=== PATIENT | male | born 1980 | race American Indian/Alaskan Native ===

== ENCOUNTER 2018-12-09 11:02 | Emergency (ER) | payer MEDICAID ==
--- NOTE | 2018-12-09 11:26 | Emergency Department Report ---
Chief Complaint: Sore Throat Stated Complaint: SORETHROAT Time Seen by Provider: 12/09/18 11:23 - HPI History of Present Illness: pt has sore throat x3 days subjective fever no medication tried pt states kids has strep throat rapid strep sent MSE screening note: Focused history and physical exam performed. Due to findings the following was ordered: rapid strep ED Disposition for MSE Condition: Stable
--- NOTE | 2018-12-09 12:03 | Emergency Department Report ---
ED ENT HPI - General Chief complaint: Sore Throat Stated complaint: SORETHROAT Time Seen by Provider: 12/09/18 11:23 Source: patient Mode of arrival: Ambulatory Limitations: No Limitations - History of Present Illness Initial comments: Pt is a 38 yo male who presents to the ED with a sore throat for three days. He has subjective fever and pain with swallowing. He denies any cough or any other sx. The patient has not tried any treatment. The patient's child has strep throat. - Related Data Previous Rx's Medication Instructions Recorded Last Taken Type Amoxicillin [Trimox CAP] 500 mg PO BID 10 Days #20 capsule 12/09/18 Unknown Rx Allergies Allergy/AdvReac Type Severity Reaction Status Date / Time No Known Allergies Allergy Unverified 12/09/18 11:06 ED Dental HPI - General Chief complaint: Sore Throat Stated complaint: SORETHROAT Time Seen by Provider: 12/09/18 11:23 Source: patient Mode of arrival: Ambulatory Limitations: No Limitations - Related Data Previous Rx's Medication Instructions Recorded Last Taken Type Amoxicillin [Trimox CAP] 500 mg PO BID 10 Days #20 capsule 12/09/18 Unknown Rx Allergies Allergy/AdvReac Type Severity Reaction Status Date / Time No Known Allergies Allergy Unverified 12/09/18 11:06 ED Review of Systems ROS: Stated complaint: SORETHROAT Other details as noted in HPI Comment: All other systems reviewed and negative ED Past Medical Hx - Past Medical History Previous Medical History?: No - Surgical History Past Surgical History?: No - Social History Smoking Status: Current Every Day Smoker Substance Use Type: Alcohol - Medications Home Medications: Home Medications Medication Instructions Recorded Confirmed Last Taken Type Amoxicillin [Trimox CAP] 500 mg PO BID 10 Days #20 capsule 12/09/18 Unknown Rx ED Physical Exam - General Limitations: No Limitations General appearance: alert, in no apparent distress - Head Head exam: Present: atraumatic, normocephalic - Eye Eye exam: Present: normal appearance - ENT ENT exam: Present: mucous membranes moist, other (mild posterior oropharynx erythema, small amount of tonsillar exudates, uvula is midline) - Respiratory Respiratory exam: Absent: respiratory distress - Cardiovascular Cardiovascular Exam: Present: regular rate - Neurological Exam Neurological exam: Present: alert, oriented X3 - Psychiatric Psychiatric exam: Present: normal affect, normal mood - Skin Skin exam: Present: warm, dry, intact ED Course Vital Signs 12/09/18 11:23 Temperature 98.1 F Pulse Rate 78 Respiratory 20 Rate Blood Pressure 139/96 O2 Sat by Pulse 98 Oximetry ED Medical Decision Making - Medical Decision Making Pt is a 38 yo male who presents to the ED with a sore throat for three days. He has subjective fever and pain with swallowing. He denies any cough or any other sx. The patient has not tried any treatment. The patient's child has strep throat. Rapid strep is positive. VSS. Will tx pt with amoxicillin. Will have pt follow up with PCP in the next 2-3 days. Return to the ED for any new or worsening symptoms. - Differential Diagnosis strep throat, URI, viral syndrome Critical care attestation.: If time is entered above; I have spent that time in minutes in the direct care of this critically ill patient, excluding procedure time. ED Disposition Clinical Impression: Strep pharyngitis Disposition: DC-01 TO HOME OR SELFCARE Is pt being admited?: No Does the pt Need Aspirin: No Condition: Stable Instructions: Strep Throat (ED) Additional Instructions: Please take all of your medication as prescribed. Use warm salt water gargles for sore throat. Drink plenty of fluids. Alternate tylenol/motrin every 4 hours as needed for a temperature of 100.4 or greater. Follow up with a primary care doctor in the next 2-3 days. Return to the emergency room for any new or worsening symptoms. Prescriptions: Amoxicillin [Trimox CAP] 500 mg PO BID 10 Days #20 capsule Time of Disposition: 12:04 Print Language: SPANISH
[2018-12-09 12:31] VITALS: BP 140/80
== END 2018-12-09 12:28 | disposition home or self-care (01) ==
LOC: ED 11:02
DX: J02.0 Streptococcal pharyngitis (principal); F17.200 Nicotine dependence, unspecified, uncomplicated
CPT/HCPCS: 87430; 99283

== ENCOUNTER 2021-12-25 03:01 | Emergency (ER) | payer SELFPAY ==
[2021-12-25] MEDS ORDERED: HALOPERIDOL LACTATE 5 MG/1 ML INJ IM PRN (04:29)
[2021-12-25] MEDS ORDERED: LORazepam 2 MG/ML VIAL IM PRN (04:29)
--- NOTE | 2021-12-25 04:32 | Emergency Department Report ---
ED General Adult HPI - General Chief complaint: Psych Stated complaint: SUICIDAL IDEATIONS, FOOT PAIN Time Seen by Provider: 12/25/21 04:13 Source: patient, EMS ( EMS documentation not available at time of chart dictation ), RN notes reviewed, old records reviewed Mode of arrival: Ambulatory Limitations: No Limitations - History of Present Illness Initial comments: The patient is a 41-year-old gentleman who presents to the ER complaining of hallucinations, suicidality and foot pain. Initially, patient brought to the hospital by EMS, smiling and cooperative. During my subsequent evaluation, patient is sleeping on his side, and asks to be left alone. He would not describe the qualitative nature of his symptoms, exacerbating factors relieving factors or aggravating factors. He is not accompanied by friends or family at this time for additional history or collateral information -: unknown - Related Data Previous Rx's Medication Instructions Recorded Last Taken Type Amoxicillin [Trimox CAP] 500 mg PO BID 10 Days #20 capsule 12/09/18 Unknown Rx HYDROcodone/ACETAMINOPHEN 15 ml PO Q6H PRN #150 solution 12/09/18 Unknown Rx [Hydrocodon-Acetamin 7.5-325/15] predniSONE [Deltasone] 20 mg PO QDAY #5 tab 12/09/18 Unknown Rx Allergies Allergy/AdvReac Type Severity Reaction Status Date / Time No Known Allergies Allergy Verified 12/25/21 19:30 ED Review of Systems ROS: Stated complaint: SUICIDAL IDEATIONS, FOOT PAIN Other details as noted in HPI Comment: per hpi Constitutional: see HPI Eyes: as per HPI ENT: as per HPI Respiratory: see HPI Cardiovascular: as per HPI Endocrine: see HPI Gastrointestinal: as per HPI Genitourinary: as per HPI Musculoskeletal: as per HPI, myalgia Psychiatric: suicidal thoughts ED Past Medical Hx - Past Medical History Previous Medical History?: Yes Hx Seizures: Yes Hx Psychiatric Treatment: Yes - Surgical History Past Surgical History?: No - Social History Smoking Status: Current Every Day Smoker Substance Use Type: Alcohol - Medications Home Medications: Home Medications Medication Instructions Recorded Confirmed Last Taken Type Amoxicillin [Trimox CAP] 500 mg PO BID 10 Days #20 capsule 12/09/18 Unknown Rx HYDROcodone/ACETAMINOPHEN 15 ml PO Q6H PRN #150 solution 12/09/18 Unknown Rx [Hydrocodon-Acetamin 7.5-325/15] predniSONE [Deltasone] 20 mg PO QDAY #5 tab 12/09/18 Unknown Rx ED Physical Exam - General Limitations: Other (Patient does not speak to this examiner) General appearance: alert, in no apparent distress, obese - Head Head exam: Present: atraumatic, normocephalic - Eye Eye exam: Present: normal appearance, PERRL, EOMI. Absent: nystagmus - ENT ENT exam: Present: normal exam, normal orophraynx, mucous membranes moist, normal external ear exam - Neck Neck exam: Present: normal inspection, full ROM. Absent: tenderness, meningismus - Respiratory Respiratory exam: Present: normal lung sounds bilaterally. Absent: respiratory distress, wheezes, rales, rhonchi, stridor, decreased breath sounds - Cardiovascular Cardiovascular Exam: Present: normal rhythm, bradycardia. Absent: tachycardia, irregular rhythm, systolic murmur, diastolic murmur, rubs, gallop - GI/Abdominal GI/Abdominal exam: Present: soft. Absent: distended, tenderness, guarding, rebound, rigid, pulsatile mass - Rectal Rectal exam: Present: deferred - Extremities Exam Extremities exam: Present: normal inspection, full ROM, other (2+ pulses noted in the bilateral upper and lower extremities. There is no palpable cord. negative Homans sign. Muscular compartments are soft. The pelvis is stable.). Absent: pedal edema, calf tenderness - Back Exam Back exam: Present: normal inspection. Absent: tenderness, CVA tenderness (R), CVA tenderness (L), paraspinal tenderness, vertebral tenderness - Neurological Exam Neurological exam: Present: alert, other (There is no facial droop. The tongue is midline. EOMI. 5 out of 5 strength in 4 extremities) - Psychiatric Psychiatric exam: Present: flat affect, suicidal ideation - Skin Skin exam: Present: warm, dry, intact, normal color. Absent: rash ED Course Vital Signs 12/25/21 12/25/21 12/25/21 03:18 09:05 10:00 Temperature 98 F 98.4 F Pulse Rate 58 L 76 Respiratory 16 16 Rate Blood Pressure 115/75 136/82 [Right] O2 Sat by Pulse 100 98 99 Oximetry 12/25/21 20:05 Temperature 98.4 F Pulse Rate 60 Respiratory 16 Rate Blood Pressure 103/68 [Right] O2 Sat by Pulse 100 Oximetry - Reevaluation(s) Reevaluation #1: 12/25/21 05:29 Differential diagnosis, including but not limited to: Malingering, secondary gain, behavioral health screening examination, medical clearance for psychiatric placement Assessment and plan: 41-year-old gentleman, who was afebrile, with reassuring vital signs, with a benign and unremarkable physical examination, presenting to the ER today with a triage articulated complaint of suicidality and hallucinations. Place patient on 1013. Psychiatric consultation requested. Appropriate laboratory studies ordered. Urinalysis ordered. COVID swab ordered. Care will be transferred to the oncoming ER physician, Dr Florina DURAN, to follow-up and the aforementioned diagnostic studies. His physical exam is benign and unremarkable, and should these laboratory studies be unremarkable, patient may be considered medically suitable for psychiatric consultation, disposition and placement. 12/26/21 00:31 ED Medical Decision Making - Lab Data Result diagrams: 12/25/21 19:18 12/25/21 06:03 Vital Signs 12/25/21 03:18 Temperature 98 F Pulse Rate 58 L Respiratory 16 Rate Blood Pressure 115/75 [Right] O2 Sat by Pulse 100 Oximetry Lab Results 12/25/21 12/25/21 12/25/21 Range/Units 06:03 06:37 06:37 WBC (4.5-11.0) K/mm3 RBC (3.65-5.03) M/mm3 Hgb (11.8-15.2) gm/dl Hct (35.5-45.6) % MCV (84-94) fl MCH (28-32) pg MCHC (32-34) % RDW (13.2-15.2) % Plt Count (140-440) K/mm3 Lymph % (Auto) (13.4-35.0) % [place] % (Auto) (0.0-7.3) % Eos % (Auto) (0.0-4.3) % Baso % (Auto) (0.0-1.8) % Lymph # (Auto) (1.2-5.4) K/mm3 [place] # (Auto) (0.0-0.8) K/mm3 Eos # (Auto) (0.0-0.4) K/mm3 Baso # (Auto) (0.0-0.1) K/mm3 Seg Neutrophils % (40.0-70.0) % Seg Neutrophils # (1.8-7.7) K/mm3 Sodium 139 (137-145) mmol/L Potassium 4.1 (3.6-5.0) mmol/L Chloride 105.5 (98-107) mmol/L Carbon Dioxide 20 L (22-30) mmol/L Anion Gap 18 mmol/L BUN 10 (9-20) mg/dL Creatinine 0.8 (0.8-1.3) mg/dL Estimated GFR > 60 ml/min BUN/Creatinine Ratio 13 % Glucose 108 H (75-100) mg/dL Calcium 9.2 (8.4-10.2) mg/dL Total Bilirubin 0.20 (0.1-1.2) mg/dL AST 22 (5-40) units/L ALT 18 (7-56) units/L Alkaline Phosphatase 92 (35-129) units/L Total Creatine Kinase (55-170) units/L Total Protein 6.3 (6.3-8.2) g/dL Albumin 3.9 (3.9-5) g/dL Albumin/Globulin Ratio 1.6 % Urine Color (Yellow) Urine Turbidity (Clear) Urine pH (5.0-7.0) Ur Specific [place] (1.003-1.030) Urine Protein (Negative) mg/dL Urine Glucose (UA) (Negative) mg/dL Urine Ketones (Negative) mg/dL Urine Blood (Negative) Urine Nitrite (Negative) Urine Bilirubin (Negative) Urine Urobilinogen (<2.0) mg/dL Ur Leukocyte Esterase (Negative) Urine WBC (Auto) (0.0-6.0) /HPF Urine RBC (Auto) (0.0-6.0) /HPF U Epithel Cells (Auto) (0-13.0) /HPF Urine Mucus /HPF Salicylates < 0.3 L (2.8-20.0) mg/dL Urine Opiates Screen Urine Methadone Screen Acetaminophen 5.0 L (10.0-30.0) ug/mL Ur Barbiturates Screen Valproic Acid < 2.8 L (50-100) ug/mL Ur Phencyclidine Scrn Ur Amphetamines Screen U Benzodiazepines Scrn Urine Cocaine Screen U Marijuana (THC) Screen Drugs of Abuse Note Plasma/Serum Alcohol (0-0.07) % SARS-CoV-2 (PCR) (Negative) 12/25/21 12/25/21 12/25/21 Range/Units 06:37 06:37 19:18 WBC 5.4 (4.5-11.0) K/mm3 RBC 5.46 H (3.65-5.03) M/mm3 Hgb 13.7 (11.8-15.2) gm/dl Hct 42.1 (35.5-45.6) % MCV 77 L (84-94) fl MCH 25 L (28-32) pg MCHC 33 (32-34) % RDW 18.0 H (13.2-15.2) % Plt Count 234 (140-440) K/mm3 Lymph % (Auto) 27.9 (13.4-35.0) % [place] % (Auto) 9.1 H (0.0-7.3) % Eos % (Auto) 7.5 H (0.0-4.3) % Baso % (Auto) 0.5 (0.0-1.8) % Lymph # (Auto) 1.5 (1.2-5.4) K/mm3 [place] # (Auto) 0.5 (0.0-0.8) K/mm3 Eos # (Auto) 0.4 (0.0-0.4) K/mm3 Baso # (Auto) 0.0 (0.0-0.1) K/mm3 Seg Neutrophils % 55.0 (40.0-70.0) % Seg Neutrophils # 3.0 (1.8-7.7) K/mm3 Sodium (137-145) mmol/L Potassium (3.6-5.0) mmol/L Chloride (98-107) mmol/L Carbon Dioxide (22-30) mmol/L Anion Gap mmol/L BUN (9-20) mg/dL Creatinine (0.8-1.3) mg/dL Estimated GFR ml/min BUN/Creatinine Ratio % Glucose (75-100) mg/dL Calcium (8.4-10.2) mg/dL Total Bilirubin (0.1-1.2) mg/dL AST (5-40) units/L ALT (7-56) units/L Alkaline Phosphatase (35-129) units/L Total Creatine Kinase 363 H (55-170) units/L Total Protein (6.3-8.2) g/dL Albumin (3.9-5) g/dL Albumin/Globulin Ratio % Urine Color (Yellow) Urine Turbidity (Clear) Urine pH (5.0-7.0) Ur Specific [place] (1.003-1.030) Urine Protein (Negative) mg/dL Urine Glucose (UA) (Negative) mg/dL Urine Ketones (Negative) mg/dL Urine Blood (Negative) Urine Nitrite (Negative) Urine Bilirubin (Negative) Urine Urobilinogen (<2.0) mg/dL Ur Leukocyte Esterase (Negative) Urine WBC (Auto) (0.0-6.0) /HPF Urine RBC (Auto) (0.0-6.0) /HPF U Epithel Cells (Auto) (0-13.0) /HPF Urine Mucus /HPF Salicylates (2.8-20.0) mg/dL Urine Opiates Screen Urine Methadone Screen Acetaminophen (10.0-30.0) ug/mL Ur Barbiturates Screen Valproic Acid (50-100) ug/mL Ur Phencyclidine Scrn Ur Amphetamines Screen U Benzodiazepines Scrn Urine Cocaine Screen U Marijuana (THC) Screen Drugs of Abuse Note Plasma/Serum Alcohol < 0.01 (0-0.07) % SARS-CoV-2 (PCR) (Negative) 12/25/21 12/25/21 12/25/21 Range/Units 20:48 20:48 Unknown WBC (4.5-11.0) K/mm3 RBC (3.65-5.03) M/mm3 Hgb (11.8-15.2) gm/dl Hct (35.5-45.6) % MCV (84-94) fl MCH (28-32) pg MCHC (32-34) % RDW (13.2-15.2) % Plt Count (140-440) K/mm3 Lymph % (Auto) (13.4-35.0) % [place] % (Auto) (0.0-7.3) % Eos % (Auto) (0.0-4.3) % Baso % (Auto) (0.0-1.8) % Lymph # (Auto) (1.2-5.4) K/mm3 [place] # (Auto) (0.0-0.8) K/mm3 Eos # (Auto) (0.0-0.4) K/mm3 Baso # (Auto) (0.0-0.1) K/mm3 Seg Neutrophils % (40.0-70.0) % Seg Neutrophils # (1.8-7.7) K/mm3 Sodium (137-145) mmol/L Potassium (3.6-5.0) mmol/L Chloride (98-107) mmol/L Carbon Dioxide (22-30) mmol/L Anion Gap mmol/L BUN (9-20) mg/dL Creatinine (0.8-1.3) mg/dL Estimated GFR ml/min BUN/Creatinine Ratio % Glucose (75-100) mg/dL Calcium (8.4-10.2) mg/dL Total Bilirubin (0.1-1.2) mg/dL AST (5-40) units/L ALT (7-56) units/L Alkaline Phosphatase (35-129) units/L Total Creatine Kinase (55-170) units/L Total Protein (6.3-8.2) g/dL Albumin (3.9-5) g/dL Albumin/Globulin Ratio % Urine Color Yellow (Yellow) Urine Turbidity Clear (Clear) Urine pH 6.0 (5.0-7.0) Ur Specific [place] 1.025 (1.003-1.030) Urine Protein <15 mg/dl (Negative) mg/dL Urine Glucose (UA) Neg (Negative) mg/dL Urine Ketones Neg (Negative) mg/dL Urine Blood Neg (Negative) Urine Nitrite Neg (Negative) Urine Bilirubin Neg (Negative) Urine Urobilinogen 4.0 (<2.0) mg/dL Ur Leukocyte Esterase Tr (Negative) Urine WBC (Auto) 6.0 (0.0-6.0) /HPF Urine RBC (Auto) 3.0 (0.0-6.0) /HPF U Epithel Cells (Auto) 3.0 (0-13.0) /HPF Urine Mucus Few /HPF Salicylates (2.8-20.0) mg/dL Urine Opiates Screen Negative Urine Methadone Screen Negative Acetaminophen (10.0-30.0) ug/mL Ur Barbiturates Screen Negative Valproic Acid (50-100) ug/mL Ur Phencyclidine Scrn Negative Ur Amphetamines Screen Negative U Benzodiazepines Scrn Negative Urine Cocaine Screen Positive U Marijuana (THC) Screen Positive Drugs of Abuse Note Disclamer Plasma/Serum Alcohol (0-0.07) % SARS-CoV-2 (PCR) Negative (Negative) Critical care attestation.: If time is entered above; I have spent that time in minutes in the direct care of this critically ill patient, excluding procedure time. ED Disposition Clinical Impression: Medical clearance for psychiatric admission Disposition: [address] [place] [address] Is pt being admited?: No Does the pt Need Aspirin: No Condition: Good Referrals: PRIMARY CARE, [Primary Care Provider] - 3-5 Days
[2021-12-25 06:47] LABS: Alanine Aminotransferase 18 units/L (7-56); Albumin 3.9 g/dL (3.9-5); BUN/Creatinine Ratio 13; Blood Urea Nitrogen 10 mg/dL (9-20); Calcium 9.2 mg/dL (8.4-10.2); Hemolysis Index 58
--- NOTE | 2021-12-25 15:16 | Consultation ---
History of Present Illness - Reason for Consult Consult date: 12/25/21 Reason for consult: SI - History of Present Psychiatric Illness ED Note: The patient is a 41-year-old gentleman who presents to the ER complaining of hallucinations, suicidality and foot pain. Initially, patient brought to the hospital by EMS, smiling and cooperative. During my subsequent evaluation, patient is sleeping on his side, and asks to be left alone. He would not describe the qualitative nature of his symptoms, exacerbating factors relieving factors or aggravating factors. The patient is a 41 year old male with history of bipolar. The patient was seen today. He states he has been hearing voices x 2 days. The patient endorses depression and suicidal ideation with a plan to "jump in front of the train." PSYCHIATRIC HISTORY: Diagnoses: Bipolar Suicide attempts or Self-harm behavior: Yes Prior psychiatric hospitalizations: Yes Substance Abuse history:Cocaine Previous psychiatric medications tried: unable to recall Outpatient treatment: Unknown PAST MEDICAL HISTORY: None reported or document Family Psychiatric History: None reported or documented SOCIAL HISTORY Marital Status: Single Living Arrangements: Homeless Employment Status: Unemployed Access to guns/weapons: Denies Education: 3rd grade History of Abuse: Denies Legal History: unknown REVIEW OF SYSTEMS Constitutional: Negative for weight loss ENT: Negative for stridor Respiratory: Negative for cough or hemoptysis All other systems reviewed and are negative MENTAL STATUS EXAMINATION General Appearance and Behavior: Age appropriate, good hygiene, wearing appropriate clothes. calm, cooperative Cooperation: Cooperative Psychomotor Behavior: Psychomotor normal Mood: "depressed" Affect and affective range: Congruent with stated mood Thought Process: goal directed Thought Content: suicidal Speech: normal tone and pace Suicidal Ideation: Yes Homicidal Ideation:Denies Hallucinations: Auditory Delusions: None elicited Impulse Control: limited Insight and Judgment: Limited Memory: Limited Attention: attentive Orientation: a/o x 2 Assessment (1) Bipolar Current Visit: Yes Status: Acute Treatment Plan 1013 Start Zyprexa 5mg po BID Risks, benefits and alternatives of medications discussed with the patient, questions answered and consent obtained from patient. PSYCHOTHERAPY: Supportive psychotherapy provided MEDICAL: Per primary team DELIRIUM PRECAUTIONS: Please re-orient patient frequently, keep lights on during the day, and minimize benzodiazepines and opiates as these medications could worsen patient's confusion. LINUX PROGRAMMER: Defer to primary DISPOSITION: recommend acute inpatient psychiatric hospitalization at this time. FOLLOW-UP: Will follow. Thanks Case staffed with Dr. Bravo Medications and Allergies Allergies Allergy/AdvReac Type Severity Reaction Status Date / Time No Known Allergies Allergy Unverified 12/09/18 11:06 Home Medications Medication Instructions Recorded Confirmed Last Taken Type Amoxicillin [Trimox CAP] 500 mg PO BID 10 Days #20 capsule 12/09/18 Unknown Rx HYDROcodone/ACETAMINOPHEN 15 ml PO Q6H PRN #150 solution 12/09/18 Unknown Rx [Hydrocodon-Acetamin 7.5-325/15] predniSONE [Deltasone] 20 mg PO QDAY #5 tab 12/09/18 Unknown Rx Active Meds: Active Medications Haloperidol Lactate (Haloperidol Lactate 5 Mg/1 Ml Inj) 5 mg IM Q6HR PRN PRN Reason: Agitation Lorazepam (Lorazepam 2 Mg/Ml Vial) 2 mg IM Q4HR PRN PRN Reason: Agitation Mental Status Exam - Vital signs Last Vital Signs Temp 98.4 F 12/25/21 09:05 Pulse 76 12/25/21 09:05 Resp 16 12/25/21 09:05 BP 136/82 12/25/21 09:05 Pulse Ox 99 12/25/21 10:00 Results Result Diagrams: 12/25/21 06:03 Abnormal lab results 12/25/21 12/25/21 12/25/21 Range/Units 06:03 06:37 06:37 Carbon Dioxide 20 L (22-30) mmol/L Glucose 108 H (75-100) mg/dL Total Creatine Kinase (55-170) units/L Salicylates < 0.3 L (2.8-20.0) mg/dL Acetaminophen 5.0 L (10.0-30.0) ug/mL Valproic Acid < 2.8 L (50-100) ug/mL 12/25/21 Range/Units 06:37 Carbon Dioxide (22-30) mmol/L Glucose (75-100) mg/dL Total Creatine Kinase 363 H (55-170) units/L Salicylates (2.8-20.0) mg/dL Acetaminophen (10.0-30.0) ug/mL Valproic Acid (50-100) ug/mL All other labs normal.
--- NOTE | 2021-12-25 15:51 | Emergency Department Report ---
Blank Doc - Documentation Documentation: Pt orignially signed out to Dr Jcakson. pt on 1012 cbc not preformed as ordered, requested blood draw resulted chemistries are unremarkable. urine collection still pending
[2021-12-25] MEDS ORDERED: diphenhydrAMINE 50 MG/ML VIAL IM ONE (16:14)
[2021-12-25] MEDS ORDERED: ZIPRASIDONE MESYLATE 20 MG VIAL IM ONE (16:14)
[2021-12-25 19:22] LABS: Basophils % (Auto) 0.5 % (0.0-1.8); Eosinophils # (Auto) 0.4 K/mm3 (0.0-0.4); Eosinophils % (Auto) 7.5 % (0.0-4.3); Hematocrit 42.1 % (35.5-45.6); Hemoglobin 13.7 gm/dl (11.8-15.2); Lymphocytes # (Auto) 1.5 K/mm3 (1.2-5.4); Lymphocytes % (Auto) 27.9 % (13.4-35.0); Mean Corpuscular HGB Conc 33 % (32-34); Mean Corpuscular Volume 77 fl (84-94); Monocytes # (Auto) 0.5 K/mm3 (0.0-0.8); Monocytes % (Auto) 9.1 % (0.0-7.3); Platelet Count 234 K/mm3 (140-440); Red Blood Count 5.46 M/mm3 (3.65-5.03)
[2021-12-25 21:19] LABS: Bilirubin,Urine NEG (Negative); Blood,Urine NEG (Negative); Color,Urine Yellow (Yellow); Mucus,Urine FEW /HPF; Protein,Urine <15 mg/dL mg/dL (Negative)
[2021-12-25 21:25] LABS: Amphetamine Screen,Urine Negative; Benzodiazepines Screen,Urine Negative; Methadone Screen,Urine Negative; Opiate Screen,Urine Negative
[2021-12-25 21:42] LABS: Cannabinoid Screen,Urine Positive; Cocaine Screen,Urine Positive
[2021-12-26 08:36] VITALS: BP 108/60
--- NOTE | 2021-12-26 10:30 | Progress Note ---
Subjective - Reason for Consult Consult date: 12/26/21 Reason for consult: suicidal ideation - Chief Complaint Chief complaint: The patient was seen today. he states he is doing well. He states " I made up things yesterday, someone told me to say things." The patient denies any current suicidal/homicidal ideation and denies hallucinations. REVIEW OF SYSTEMS Constitutional: Negative for weight loss ENT: Negative for stridor Respiratory: Negative for cough or hemoptysis All other systems reviewed and are negative MENTAL STATUS EXAMINATION General Appearance and Behavior: Age appropriate, good hygiene, wearing appropriate clothes. calm, cooperative Cooperation: Cooperative Psychomotor Behavior: Psychomotor normal Mood: ok Affect and affective range: Congruent with stated mood Thought Process: Goal directed Thought Content: Reality oriented Speech: normal tone and pace Suicidal Ideation: Denies Homicidal Ideation:Denies Hallucinations: Denies Delusions: None elicited Impulse Control: limited Insight and Judgment: Limited Memory: Limited Attention: attentive Orientation: a/o x 2 Assessment (1) Bipolar Current Visit: Yes Status: Acute Treatment Plan [id number] Continue Zyprexa 5mg po BID Risks, benefits and alternatives of medications discussed with the patient, questions answered and consent obtained from patient. PSYCHOTHERAPY: Supportive psychotherapy provided MEDICAL: Per primary team DELIRIUM PRECAUTIONS: Please re-orient patient frequently, keep lights on during the day, and minimize benzodiazepines and opiates as these medications could worsen patient's confusion. PIPE INSPECTOR: Defer to primary DISPOSITION: Do not recommend acute inpatient psychiatric hospitalization at this time. Home Insurance Agent will provide patient with psychiatric out patient resources. FOLLOW-UP: Will sign off. Thanks [facility] staffed with Dr. Bravo Medications and Allergies Mental Status Exam - Vital signs Last Vital Signs Temp 98.0 F 12/26/21 08:35 Pulse 65 12/26/21 08:35 Resp 16 12/26/21 08:35 BP 108/60 12/26/21 08:35 Pulse Ox 97 12/26/21 08:36
== END 2021-12-26 11:45 | disposition home or self-care (01) ==
LOC: EEVIPCON 03:01 → ED 03:01
DX: Z13.30 Encounter for screening examination for mental health and behavioral disorders, unspecified (principal); R56.9 Unspecified convulsions; F17.200 Nicotine dependence, unspecified, uncomplicated; Z79.899 Other long term (current) drug therapy; Z20.822 Contact with and (suspected) exposure to COVID-19
CPT/HCPCS: 36415; 80053; 80164; 80307; 81001; 82550; 85025; 99284; U0003; 80320; G0480

== ENCOUNTER 2022-01-25 03:26 | Emergency (ER) | payer SELFPAY ==
[2022-01-25] MEDS ORDERED: SODIUM CHLORIDE 0.9% 1000 ML 1,000 ML IV ONE (03:48)
[2022-01-25 04:12] LABS: Basophils # (Auto) 0.1 K/mm3 (0.0-0.1); Basophils % (Auto) 1.1 % (0.0-1.8); Eosinophils # (Auto) 0.2 K/mm3 (0.0-0.4); Eosinophils % (Auto) 3.4 % (0.0-4.3); Hematocrit 35.9 % (35.5-45.6); Hemoglobin 12.4 gm/dl (11.8-15.2); Lymphocytes # (Auto) 2.3 K/mm3 (1.2-5.4); Lymphocytes % (Auto) 35.7 % (13.4-35.0); Mean Corpuscular HGB Conc 34 % (32-34); Mean Corpuscular Volume 76 fl (84-94); Monocytes # (Auto) 0.6 K/mm3 (0.0-0.8); Monocytes % (Auto) 9.5 % (0.0-7.3); Platelet Count 235 K/mm3 (140-440); Red Blood Count 4.72 M/mm3 (3.65-5.03); Red Cell Distribution Width 17.9 % (13.2-15.2)
[2022-01-25 04:35] LABS: Alanine Aminotransferase 23 units/L (7-56); Albumin 3.9 g/dL (3.9-5); BUN/Creatinine Ratio 13; Blood Urea Nitrogen 12 mg/dL (9-20); Hemolysis Index 34
[2022-01-25 05:11] LABS: Bilirubin,Direct < 0.2 mg/dL (0-0.2)
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
--- NOTE | 2022-01-25 10:14 | Electrocardiograph Report ---
[facility] Test Date: 2022-01-25 Test Time: 05:11:52 Pat Name: RAYMOND ADRIAN Department: Room: Gender: M Mowing Machine Operator: MIGNON : 1980 Requested By: RITA COREA Order Number: [id number] Reading MD: Jose Lopez Measurements Intervals [place] Rate: 61 P: 61 WA: 147 QRS: 56 QRSD: 80 T: 22 QT: 401 QTc: 406 Interpretive Statements Sinus rhythm Low voltage, precordial leads No previous ECG available for comparison Electronically Signed On 01-25-2022 10:14:19 EDT by Jose Lopez
[2022-01-25 13:26] VITALS: BP 135/72
[2022-01-25 13:53] LABS: Bilirubin,Urine NEG (Negative); Blood,Urine NEG (Negative); Color,Urine Yellow (Yellow); Mucus,Urine FEW /HPF; Protein,Urine <15 mg/dL mg/dL (Negative)
[2022-01-25 14:01] LABS: Amphetamine Screen,Urine Negative; Benzodiazepines Screen,Urine Negative; Methadone Screen,Urine Negative; Opiate Screen,Urine Negative
[2022-01-25 14:13] LABS: Cannabinoid Screen,Urine Positive; Cocaine Screen,Urine Positive
--- NOTE | 2022-01-25 15:29 | Cat Scan Report ---
CT HEAD WITHOUT CONTRAST INDICATION / CLINICAL INFORMATION: Seizure, postictal. TECHNIQUE: Axial imaging performed from the skull apex through the skull base without the use of cont rast. Sagittal and coronal reformatted images. All CT scans at this location are performed using CT dose reduction for ALARA by means of automated exposure control. COMPARISON: None available. FINDINGS: CEREBRAL PARENCHYMA: No significant abnormality. No acute territorial infarct. HEMORRHAGE: None. EXTRA-AXIAL SPACES: Normal in size and morphology for the patient's age. VENTRICULAR SYSTEM: Normal in size and morphology for the patient's age. MIDLINE SHIFT OR HERNIATION: None. CEREBELLUM / BRAINSTEM: No significant abnormality. CALVARIUM: No significant abnormality. ORBITS: Chronic right inferior orbital wall fracture is present. Orbital contents are unremarkable. PARANASAL SINUSES / MASTOID AIR CELLS: There is moderate fluid or mucosal thickening throughout the e thmoid air cells. The remaining visualized sinuses and mastoid air cells are clear. SOFT TISSUES of HEAD: No significant abnormality. ADDITIONAL FINDINGS: None. IMPRESSION: Unremarkable CT of the brain parenchyma. No evidence for hemorrhage, ischemia, mass or edema. Chronic right inferior orbital wall fracture. Ethmoid sinus disease, likely chronic. Signer Name: Cory Patton Jr, MD Signed: 01/25/2022 3:25 PM Workstation Name: [id number]
--- NOTE | 2022-01-25 16:33 | Event Note ---
Date: 01/25/22 Patient has a history of seizures Noncompliant with medications During my examination patient doing well Eating by himself Alert and oriented and asking for more food and liquids . Discussed with patient about his diagnosis and prognosis Counseled about compliance Counseled about stopping cocaine Patient to be discharged on Keppra 1000 mg twice a day and to be compliant Percocet 5/325 p.o. twice daily #12 for generalized pain
== END 2022-01-25 17:34 | disposition home or self-care (01) ==
LOC: ED 03:26
DX: F19.10 Other psychoactive substance abuse, uncomplicated (principal); F14.10 Cocaine abuse, uncomplicated; F17.200 Nicotine dependence, unspecified, uncomplicated; F10.20 Alcohol dependence, uncomplicated
CPT/HCPCS: 36415; 70450; 80053; 80076; 80307; 81001; 85025; 93005; 96360; 96361; 99284; J7030; 80320; G0480

== ENCOUNTER 2022-01-30 15:14 | Emergency (ER) | payer SELFPAY ==
[2022-01-30 15:20] VITALS: BP 160/90
[2022-01-30] MEDS ORDERED: SODIUM CHLORIDE 0.9% 1000 ML 1,000 ML IV ONE (15:34)
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
== END 2022-01-30 18:54 ==
LOC: ED 15:14
DX: Z00.00 Encounter for general adult medical examination without abnormal findings (principal); R41.82 Altered mental status, unspecified; F17.200 Nicotine dependence, unspecified, uncomplicated; F12.90 Cannabis use, unspecified, uncomplicated; F14.90 Cocaine use, unspecified, uncomplicated; Z72.89 Other problems related to lifestyle; Z79.899 Other long term (current) drug therapy
CPT/HCPCS: 99283

== ENCOUNTER 2022-04-30 14:25 | Emergency (ER) | payer SELFPAY ==
[2022-04-30] MEDS ORDERED: TETANUS,DIPH,PERTUSS(ACELL) VACCINE 0.5 ML SYRINGE IM ONE (15:32)
[2022-04-30] MEDS ORDERED: HYDROcodone/ACETAMINOPHEN 5-325 MG TAB PO ONE (15:32)
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
[2022-04-30 15:35] VITALS: BP 123/78
[2022-04-30] MEDS ORDERED: cephALEXin 500 MG CAP PO ONE (15:42)
== END 2022-04-30 18:31 | disposition home or self-care (01) ==
LOC: ED 14:25
DX: T23.201A Burn of second degree of right hand, unspecified site, initial encounter (principal); F17.200 Nicotine dependence, unspecified, uncomplicated; F10.20 Alcohol dependence, uncomplicated
CPT/HCPCS: 90471; 90715; 99282

== ENCOUNTER 2022-05-23 08:48 | Emergency (ER) | payer SELFPAY ==
--- NOTE | 2022-05-23 10:36 | Emergency Department Report ---
ED Psych HPI - General Chief Complaint: Psych Stated Complaint: SI Time Seen by Provider: 05/23/22 10:31 Source: patient Mode of arrival: Ambulatory - History of Present Illness Initial Comments: 42-year-old male who came in with suicidal ideation and denied any homicidal ideation this morning. Patient also told me that he was doing all of these for attention and that there is nothing wrong with him. He said he had so many things to do at home. Patient was laughing and giggling while saying this. It was also busy eating is chips. He said he just came from the [employer] and park his car across the street. No other modifying or associated factors reported. - Related Data Previous Rx's Medication Instructions Recorded Last Taken Type Amoxicillin [Trimox CAP] 500 mg PO BID 10 Days #20 capsule 12/09/18 Unknown Rx HYDROcodone/ACETAMINOPHEN 15 ml PO Q6H PRN #150 solution 12/09/18 Unknown Rx [Hydrocodon-Acetamin 7.5-325/15] predniSONE [Deltasone] 20 mg PO QDAY #5 tab 12/09/18 Unknown Rx OLANZapine [Zyprexa] 5 mg PO QHS 30 Days #30 12/26/21 Unknown Rx Oxycodone HCl/Acetaminophen 1 each PO BID PRN 7 Days #12 01/25/22 Unknown Rx [Percocet 7.5/325 mg] levETIRAcetam [Keppra] 1,000 mg PO BID 30 Days #60 udc 01/25/22 Unknown Rx Ibuprofen [Motrin] 800 mg PO Q8HR PRN #30 tablet 04/30/22 Unknown Rx Silver Sulfadiazine [Ssd] 400 gm TP BID #1 each 04/30/22 Unknown Rx cephALEXin [Keflex] 500 mg PO Q12HR #20 cap 04/30/22 Unknown Rx Allergies Allergy/AdvReac Type Severity Reaction Status Date / Time Penicillins Allergy Swelling Verified 05/23/22 09:00 ED Review of Systems ROS: Stated complaint: SI Other details as noted in HPI Comment: All other systems reviewed and negative Psychiatric: anxiety, suicidal thoughts ED Past Medical Hx - Past Medical History Hx Seizures: Yes Hx Psychiatric Treatment: Yes - Social History Smoking Status: Current Every Day Smoker Substance Use Type: Alcohol, Cocaine, Marijuana - Medications Home Medications: Home Medications Medication Instructions Recorded Confirmed Last Taken Type Amoxicillin [Trimox CAP] 500 mg PO BID 10 Days #20 capsule 12/09/18 Unknown Rx HYDROcodone/ACETAMINOPHEN 15 ml PO Q6H PRN #150 solution 12/09/18 Unknown Rx [Hydrocodon-Acetamin 7.5-325/15] predniSONE [Deltasone] 20 mg PO QDAY #5 tab 12/09/18 Unknown Rx OLANZapine [Zyprexa] 5 mg PO QHS 30 Days #30 12/26/21 Unknown Rx Oxycodone HCl/Acetaminophen 1 each PO BID PRN 7 Days #12 01/25/22 Unknown Rx [Percocet 7.5/325 mg] levETIRAcetam [Keppra] 1,000 mg PO BID 30 Days #60 udc 01/25/22 Unknown Rx Ibuprofen [Motrin] 800 mg PO Q8HR PRN #30 tablet 04/30/22 Unknown Rx Silver Sulfadiazine [Ssd] 400 gm TP BID #1 each 04/30/22 Unknown Rx cephALEXin [Keflex] 500 mg PO Q12HR #20 cap 04/30/22 Unknown Rx ED Physical Exam - General Limitations: No Limitations General appearance: alert, in no apparent distress - Head Head exam: Present: atraumatic - Eye Eye exam: Present: normal appearance Pupils: Present: normal accommodation - ENT ENT exam: Present: normal exam, normal orophraynx, mucous membranes dry - Neck Neck exam: Present: normal inspection. Absent: tenderness - Respiratory Respiratory exam: Present: normal lung sounds bilaterally. Absent: respiratory distress, accessory muscle use - Cardiovascular Cardiovascular Exam: Present: regular rate, normal rhythm, normal heart sounds - GI/Abdominal GI/Abdominal exam: Present: soft. Absent: tenderness - Extremities Exam Extremities exam: Present: normal inspection. Absent: tenderness, pedal edema - Back Exam Back exam: Absent: tenderness - Neurological Exam Neurological exam: Present: alert, oriented X3 - Psychiatric Psychiatric exam: Present: normal affect, normal mood - Skin Skin exam: Present: warm, normal color ED Medical Decision Making - Medical Decision Making Here with depression and feeling and suicidal thoughts--differential diagnosis, including but not limited to: Encounter for behavioral health screening examination, encounter for medical screening examination--Due to these will go ahead and other routine labs studies including CBC, CMP and UA with UDS and thyroid profile in anticipation for mental health evaluation. Assessment and plan: here with concern with depressive feeling and suicidal ideation --but noted with reassuring vital signs, in no acute distress, who is cooperative, ANO x3, not homicidal but suicidal. At this point in time, this patient is cleared medically for psychiatry evaluation and recommendation. He has not demonstrated any witnessed behavior here in the ED that would be consistent with acute decompensated psychosis. I have ordered mental health evaluation. Will go ahead and order typical laboratory studies in anticipation of mental health requests. Patient seen by the psychiatric and did not recommend any inpatient and this signed out on patient. Patient reassured and discharged home. Critical care attestation.: If time is entered above; I have spent that time in minutes in the direct care of this critically ill patient, excluding procedure time. ED Disposition Clinical Impression: Behavioural disorder Disposition: 01 HOME / SELF CARE / HOMELESS Is pt being admited?: No Does the pt Need Aspirin: No Condition: Stable Instructions: Suicidal Feelings: How to Help Yourself Additional Instructions: Please continue to take your medication as prescribed by your primary psychiatric your doctor Please do not hesitate to call or return to emergency room if your symptoms recur Referrals: VICTOR MANUEL TRAYLOR MD [Primary Care Provider] - 3-5 Days Time of Disposition: 11:09
--- NOTE | 2022-05-23 11:05 | Consultation ---
History of Present Illness - Reason for Consult Consult date: 05/23/22 Reason for consult: SI - History of Present Psychiatric Illness The patient was seen today. He is calm, cooperative and pleasant. The patient is eating chips. He says he was at the club drinking. He says he didn't want to drive drunk because he thought he was going to get in trouble, so he said he was suicidal. He says "there is nothing wrong with me." The patient then starts laughing. He denies SI/HI or hallucinations. He says "I got a family, kids, grandkids, I'm not gone do nothing to hurt myself or nobody." The patient denies any psych meds. He says he's seen a psychiatrist in the past but states he could not recall what they diagnosed him with. He denies any past attempts of suicide. PAST PSYCHIATRIC HISTORY: Diagnoses: Denies Suicide attempts or Self-harm behavior: Denies Prior psychiatric hospitalizations: Denies Substance Abuse history: Denies Previous psychiatric medications tried: Denies Outpatient treatment: Denies PAST MEDICAL HISTORY: None reported Family Psychiatric History: None reported or documented SOCIAL HISTORY Marital Status: Living Arrangements: with family Employment Status: Employed Access to guns/weapons: Denies Education: History of Abuse:Denies Legal History: Denies REVIEW OF SYSTEMS Constitutional: Negative for weight loss ENT: Negative for stridor Respiratory: Negative for cough or hemoptysis All other systems reviewed and are negative MENTAL STATUS EXAMINATION General Appearance and Behavior: Age appropriate, wearing appropriate clothes, cooperative, polite with questioning, good eye contact Cooperation: cooperative Psychomotor Behavior: Psychomotor normal Mood: good Affect and affective range: congruent with stated affect Thought Process: goal directed Thought Content: None Speech: Normal volume, Regular rate and rhythm Suicidal Ideation: Denies Homicidal Ideation: Denies Hallucination: Denies Delusions: None elicited Impulse Control: Limited Insight and Judgment: Normal Memory: Intact Attention: attentive Orientation: Alert and oriented Diagnoses: Encounter for Mental Health Eval Treatment Plan No meds started at this time Medical: Per primary Sitter: Defer to primary Disposition: Do not recommend acute psychiatric inpatient treatment. Will sign off. Thanks Case staffed with Dr. Bravo. Medications and Allergies Allergies Allergy/AdvReac Type Severity Reaction Status Date / Time Penicillins Allergy Swelling Verified 05/23/22 09:00 Home Medications Medication Instructions Recorded Confirmed Last Taken Type Amoxicillin [Trimox CAP] 500 mg PO BID 10 Days #20 capsule 12/09/18 Unknown Rx HYDROcodone/ACETAMINOPHEN 15 ml PO Q6H PRN #150 solution 12/09/18 Unknown Rx [Hydrocodon-Acetamin 7.5-325/15] predniSONE [Deltasone] 20 mg PO QDAY #5 tab 12/09/18 Unknown Rx OLANZapine [Zyprexa] 5 mg PO QHS 30 Days #30 12/26/21 Unknown Rx Oxycodone HCl/Acetaminophen 1 each PO BID PRN 7 Days #12 01/25/22 Unknown Rx [Percocet 7.5/325 mg] levETIRAcetam [Keppra] 1,000 mg PO BID 30 Days #60 udc 01/25/22 Unknown Rx Ibuprofen [Motrin] 800 mg PO Q8HR PRN #30 tablet 04/30/22 Unknown Rx Silver Sulfadiazine [Ssd] 400 gm TP BID #1 each 04/30/22 Unknown Rx cephALEXin [Keflex] 500 mg PO Q12HR #20 cap 04/30/22 Unknown Rx Results All other labs normal.
[2022-05-23 14:11] VITALS: BP 113/52
== END 2022-05-23 14:17 | disposition home or self-care (01) ==
LOC: ED 08:48
DX: F91.9 Conduct disorder, unspecified (principal); R56.9 Unspecified convulsions; F17.200 Nicotine dependence, unspecified, uncomplicated; Z88.0 Allergy status to penicillin
CPT/HCPCS: 99282